=== PATIENT | male | born 1960 | race Caucasian/White ===

== ENCOUNTER 2020-12-20 09:32 | Day surgery (SDC) | payer MEDICARE, MEDICAID ==
[2020-12-20] VITALS (11 sets, daily range): BP systolic 69–113; BP diastolic 39–78
[~2020-12-20] VITALS: Ht 180.3 cm; Wt 66.8 kg
[~2020-12-20 09:32] MED LIST: AMIO200T67 PO; APIX5TAB3 PO; ATOR10TA PO; COR3.125T PO; LISI2.5T14 PO; NO HOME MEDS; TICA90TA PO
[2020-12-20] MEDS ORDERED: vancomycin/NS 1 GM ADD-VANTAGE 250 ML X 1 DOSE IV ONE (10:20)
[2020-12-20] MEDS ORDERED: normal saline 1000ml 1,000 ML IV SCH (10:20)
[2020-12-20] MEDS ORDERED: MULT-1141 PO (10:22)
[2020-12-20] MEDS ORDERED: [UNRECOGNIZED DRUG - OTHER] (10:22)
[2020-12-20] MEDS ORDERED: FURO-150 PO (10:22)
[2020-12-20] MEDS ORDERED: SPIR25TA5 PO (10:22)
[2020-12-20] MEDS ORDERED: CARVEDILOL 6.25 MG PO (10:22)
[2020-12-20] MEDS ORDERED: OMEP40CA21 PO (10:22)
[2020-12-20] MEDS ORDERED: cefazolin/dext.iso 2gm/100ml 100 ML IV SCH (10:25)
[2020-12-20 11:13] LABS: BASOPHILS # (AUTO) 0.1 X10'3 (0-0.2); EOSINOPHILS # (AUTO) 0.2 X10'3 (0-0.9); EOSINOPHILS % (AUTO) 2.7 % (0-6); HEMATOCRIT 38.3 % (42.0-52.0); LYMPHOCYTES # (AUTO) 2.1 X10'3 (1.1-4.8); LYMPHOCYTES % (AUTO) 24.2 % (21-51); MEAN CORPUSCULAR HEMOGLOBIN 28.4 PG (27.0-31.0); MEAN CORPUSCULAR VOLUME 83.6 FL (78-98); MEAN PLATELET VOLUME 7.7 FL (7.4-10.4); MONOCYTES # (AUTO) 0.8 X10'3 (0-0.9); MONOCYTES % (AUTO) 9.4 % (2-12); NEUTROPHILS # (AUTO) 5.5 X10'3 (1.8-7.7); NEUTROPHILS % (AUTO) 62.7 % (42-75); PLATELET COUNT 286 X10'3 (140-440); RED BLOOD COUNT 4.58 X10'6 (4.70-6.10); RED CELL DISTRIBUTION WIDTH 15.3 % (11.5-14.5); WHITE BLOOD COUNT 8.8 X10'3 (4.5-11.0)
[2020-12-20 11:18] LABS: ALBUMIN 3.4 G/DL (3.4-5.0); ANION GAP 9 (8-16); BLOOD UREA NITROGEN 14 MG/DL (7-18); BUN/CREATININE RATIO 12.4 (5.4-32.0); CALCIUM 8.5 MG/DL (8.5-10.1); CHLORIDE 103 MMOL/L (99-107); CREATININE 1.13 MG/DL (0.60-1.10); GLUCOSE 95 MG/DL (70-104); MAGNESIUM 2.4 MG/DL (1.5-2.4); POTASSIUM 4.3 MMOL/L (3.5-5.1); SODIUM 138 MMOL/L (135-145); eGFR 67 ML/MIN
[2020-12-20] MEDS ORDERED: LIDOcaine 1% W/epiNEPHrine 1:100,000 20ml vial ONE (11:54)
[2020-12-20] MEDS ORDERED: fentaNYL/PF 50MCG/1 ML 2ML syringe ONE (11:54)
[2020-12-20] MEDS ORDERED: vancomycin 1,000mg inj ONE (11:54)
[2020-12-20] MEDS ORDERED: midazolam 1 mg/ML 2ml injection ONE ×4 (11:54→13:07)
[2020-12-20] MEDS ORDERED: iohexol 350 MG/ML 50ML vial IV ONE (12:45)
== END 2020-12-20 15:33 | disposition home or self-care (01) ==
LOC: SSTAY O 09:32
PROVIDERS: ATTEND Internal Medicine Cardiovascular Disease
DX: I25.10 Atherosclerotic heart disease of native coronary artery without angina pectoris (principal); I42.9 Cardiomyopathy, unspecified; I49.01 Ventricular fibrillation; Z95.5 Presence of coronary angioplasty implant and graft; Z87.891 Personal history of nicotine dependence; I25.2 Old myocardial infarction
CPT/HCPCS: 33249; 36415; 71045; 80048; 83735; 85025; 85610; 93005; C1721; C1894; C1895; J2250; J3010; J3370; Q9967; 99152; 99153; A4565; A4620; A6258

== ENCOUNTER 2021-09-11 13:07 | Day surgery (SDC) | payer MEDICARE, MEDICAID ==
[2021-08-29 15:59] LABS: ALBUMIN 3.4 G/DL (3.4-5.0); BLOOD UREA NITROGEN 13 MG/DL (7-18); BUN/CREATININE RATIO 11.1 (5.4-32.0); CALCIUM 8.2 MG/DL (8.5-10.1); CHLORIDE 108 MMOL/L (99-107); CREATININE 1.17 MG/DL (0.60-1.10); PRE OP ANION GAP 8 (8-16); PRE OP BILIRUB, TOTAL 0.3 MG/DL (0.0-1.0); PRE OP GLUCOSE 111 MG/DL (70-104); PRE OP POTASSIUM 3.5 MMOL/L (3.4-5.1); PRE OP SODIUM 142 MMOL/L (135-145); TOTAL PROTEIN 6.9 G/DL (6.4-8.2); eGFR 64 ML/MIN
[2021-08-29 16:00] LABS: ALKALINE PHOSPHATASE 84 IU/L (46-116); PRE OP ALT 22 U/L (30-65); PRE OP AST 15 U/L (10-37)
[2021-08-29 16:01] LABS: BASOPHILS # (AUTO) 0.1 X10'3 (0-0.2); EOSINOPHILS # (AUTO) 0.2 X10'3 (0-0.9); EOSINOPHILS % (AUTO) 2.7 % (0-6); LYMPHOCYTES # (AUTO) 1.8 X10'3 (1.1-4.8); LYMPHOCYTES % (AUTO) 23.3 % (21-51); MEAN CORPUSCULAR HGB CONC 33.1 g/dL (33.0-36.5); MEAN CORPUSCULAR VOLUME 84.8 FL (78-98); MEAN PLATELET VOLUME 8.1 FL (7.4-10.4); MONOCYTES # (AUTO) 0.7 X10'3 (0-0.9); MONOCYTES % (AUTO) 9.3 % (2-12); NEUTROPHILS # (AUTO) 4.9 X10'3 (1.8-7.7); NEUTROPHILS % (AUTO) 63.7 % (42-75); PRE OP HEMATOCRIT 39.6 % (42.0-52.0); PRE OP HEMOGLOBIN 13.1 g/dL (14.0-17.9); PRE OP PLATELET COUNT 210 X10'3 (140-440); RED BLOOD COUNT 4.67 X10'6 (4.70-6.10); RED CELL DISTRIBUTION WIDTH 14.9 % (11.5-14.5)
[2021-09-11] VITALS (8 sets, daily range): BP systolic 132–161; BP diastolic 81–105
[~2021-09-11] VITALS: Ht 180.3 cm; Wt 79.0 kg
[~2021-09-11 13:07] MED LIST changes: -APIX5TAB3 PO; +CARVEDILOL 6.25 MG PO; -COR3.125T PO; +DOCUMENT DATE & TIME OF BETA-BLOCKER PO ONE; +FURO-150 PO; +INDOCYANINE GREEN 25 MG/10 ML VIAL IV ONE; +LEVO25TA7 PO; -LISI2.5T14 PO; +MULT-1141 PO; -NO HOME MEDS; +OMEP40CA21 PO; +PSYL1CAP3 PO; +RIVA20TA PO; +SPIR25TA5 PO; +[UNRECOGNIZED DRUG - OTHER]; +ceFAZolin inj. 2,000 MG in dextrose 5%-water 100 ML IV ONE; +famotidine 20mg tablet PO ONE; +ringers solution, lacted 1,000 ML IV SCH
[2021-09-11] MEDS ORDERED: BUPIVAcaine/PF 2.5mg/ml (0.25%) 10ml vial ONE (14:18)
[2021-09-11] MEDS ORDERED: LIDOcaine 0.5% (5mg/ml) 50ml vial ONE (14:20)
[2021-09-11] MEDS ORDERED: LIDOcaine 2% (20mg/ml) 5ml vial ONE (14:45)
[2021-09-11] MEDS ORDERED: LIDOcaine 1% (10mg/ml) 2ml vial ONE (15:54)
[2021-09-11] MEDS ORDERED: fentaNYL/PF 50MCG/1 ML 2ML syringe ONE (16:05)
[2021-09-11] MEDS ORDERED: BUPIVAcaine 0.5% inj/PF 30 ML ONE (16:08)
[2021-09-11] MEDS ORDERED: sevoflurane 250ml liquid IH ONE (16:20)
[2021-09-11] MEDS ORDERED: meperidine/PF 25mg/ml syringe IV PRN ×3 (17:10)
[2021-09-11] MEDS ORDERED: proCHLORperazine 10 MG/2 ml inj IV PRN (17:10)
[2021-09-11] MEDS ORDERED: ringers solution, lacted 1,000 ML IV SCH (17:10)
[2021-09-11] MEDS ORDERED: ondansetron/PF 4mg/2ml inj IV PRN (17:10)
[2021-09-11] MEDS ORDERED: morphine 2 MG/ML inj. syringe IV PRN (17:10)
[2021-09-11] MEDS ORDERED: morphine 4 MG/ML inj SYRINge IV PRN (17:10)
[2021-09-11] MEDS ORDERED: etomidate 2mg/ml inj. ONE (17:22)
[2021-09-11] MEDS ORDERED: LIDOcaine 1%/PF 5ML 10 MG/ML VIAL ONE (17:22)
[2021-09-11] MEDS ORDERED: rocuronium 10mg/ml inj IV ONE (17:22)
[2021-09-11] MEDS ORDERED: ondansetron/PF 4mg/2ml inj ONE (17:33)
[2021-09-11] MEDS ORDERED: neostigmine methylsulfate 1 MG/ML 10ml vial ONE (17:33)
[2021-09-11] MEDS ORDERED: glycopyrrolate 0.2mg/ml inj ONE (17:33)
[2021-09-11] MEDS ORDERED: dexamethasone sod phosphate 4mg/ml inj. ONE (17:33)
--- NOTE | 2021-09-11 17:58 | NUR ---
Received from OR via [facility], accompanied by Anesthesiologist DR. STOCKTON and report given by Anesthesiolgist. HYPERTENSIVE, DR. STOCKTON STATES NO MEDICATION NEEDED AT THIS TIME. 10L MASK WITH SATURATIONS GREATER THAN 96%. 20G PIV TO LEFT HAND WITH LR RUNNING. ANTERIOR ABDOMEN WITH 2 BANDAIDS HORIZONTALLY ACROSS LEVEL OF UMBILICUS. ARTERIAL LINE IN PLACE. STATED PATIENT CAN GO HOME WITH DOES WELL POSTOP. WILL CONTINUE TO MONITOR.
[2021-09-11] MEDS ORDERED: HYDROcodone/acetaminophen 5mg/325mg tablet PO PRN (18:10)
--- NOTE | 2021-09-11 18:58 | NUR ---
PATIENT MEETS DISCHARGE CRITERIA. DISCHARGED HOME WITH AND STEP DAUGHTER WITH ALL BELONGINGS. PATIENT UNDERSTOOD DISCHARGE INSTRUCTIONS AND WAS INSTRUCTED TO FOLLOW UP IF HE HAD AN COMPLICATIONS.
== END 2021-09-11 18:58 | disposition home or self-care (01) ==
LOC: PAS 13:07
PROVIDERS: ATTEND Surgery
DX: K80.12 Calculus of gallbladder with acute and chronic cholecystitis without obstruction (principal); I11.0 Hypertensive heart disease with heart failure; I50.9 Heart failure, unspecified; E03.9 Hypothyroidism, unspecified; I25.10 Atherosclerotic heart disease of native coronary artery without angina pectoris; I25.2 Old myocardial infarction; Z87.891 Personal history of nicotine dependence; Z95.810 Presence of automatic (implantable) cardiac defibrillator; Z79.899 Other long term (current) drug therapy; Z83.3 Family history of diabetes mellitus; Z82.49 Family history of ischemic heart disease and other diseases of the circulatory system
CPT/HCPCS: 36415; 47563; 80053; 82948; 85025; A6258; J0690; J1100; J2405; J2710; J3010; J3490; J7030; J7040; J7060; J7120; S0020; Z7506; Z7508; Z7512; A4215; A4618; A6449; A7000